=== PATIENT | female | born 1965 | race Caucasian/White ===

== ENCOUNTER 2023-01-10 01:26 | Outpatient (CLI) | payer BC, SELFPAY ==
--- NOTE | 2023-01-10 | DI.MRI_ITS ---
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 CONTRAST MATERIAL: IV Contrast: 17 mL of Dotarem contrast administered. COMPARISON: MR HEAD ADULT from 10/23/2022 FINDINGS: The examination is limited due to patient motion artifact. VENTRICLES AND EXTRA AXIAL SPACES: Normal in size and morphology for the patient's age. HEMORRHAGE: None. CEREBRAL PARENCHYMA: No focus of restricted diffusion to suggest acute infarct. There is again seen a resection cavity in the right frontal lobe. There is surrounding hyperintense signal seen on the T2 and FLAIR images predominantly inferior and posterior. There is no abnormal enhancement seen around the right frontal resection site. MIDLINE SHIFT: None. BRAINSTEM/CEREBELLUM: Normal. CALVARIUM: Normal. ENHANCEMENT: There is a 1.2 x 1.1 x 1.1 cm enhancing lesion which appears to be extra-axial and assoc iated with the tentorium cerebellum on the right. VISUALIZED PARANASAL SINUSES/MASTOIDS: Clear. [place]: Normal flow void. PITUITARY GLAND: Unremarkable. OTHER FINDINGS: IMPRESSION: 1. Stable postsurgical changes in the right frontal lobe without evidence of new enhancement. 2. Stable T2 signal adjacent to the resection cavity without enhancement. 3. 1.2 x 1.1 x 1.1 cm enhancing lesion near the junction of the posterior right temporal lobe and rig ht occipital lobe. On the coronal images the finding appears to be extra-axial and associated with t he tentorium. This may represent a benign lesion such as a meningioma. Low-grade neoplasm cannot be excluded. DATA REPOSITORY:
[2023-01-10] MEDS: Gadoterate meglumine 20 ML VIAL IVP (14:33)
[2023-01-10] MEDS: Normal Saline Flush 10 ML SYR IVP (14:33)
== END 2023-01-10 01:46 ==
LOC: DI 01:27
PROVIDERS: Visit Provider Internal Medicine
DX: C71.9 Malignant neoplasm of brain, unspecified (principal)
CPT/HCPCS: 70553

== ENCOUNTER → 2023-04-05 00:49 | Outpatient (CLI) | payer BC, SELFPAY ==
--- NOTE | 2023-04-05 | DI.MRI_ITS ---
Exam(s) MR BRAIN WO/W EXAM: MR BRAIN WO/W CLINICAL HISTORY: OLIGODENDROGLIOMA, C71.9. TECHNIQUE: Multiplanar multisequence MRI of the brain was performed. CONTRAST MATERIAL: IV Contrast: ML of Dotarem contrast administered. COMPARISON: MR HEAD ADULT from 10/23/2022 MR MR BRAIN WO/W from 01/10/2023 FINDINGS: VENTRICLES AND EXTRA AXIAL SPACES: Normal in size and morphology for the patient's age. HEMORRHAGE: None. CEREBRAL PARENCHYMA: No focus of restricted diffusion to suggest acute infarct. Area encephalomalacia is again noted in the high right frontal lobe. Stable area of surrounding gliosis. No evidence of recurrence mass or meningeal thickening at this site. Stable 12 millimeters circumscribed enhancing lesion above the right tentorium compared with the previous 2 exams.. MIDLINE SHIFT: None. BRAINSTEM/CEREBELLUM: Normal. CALVARIUM: Normal. ENHANCEMENT: No suspicious enhancement identified. VISUALIZED PARANASAL SINUSES/MASTOIDS: Clear. OTHER FINDINGS: None. IMPRESSION: Stable appearance of area of encephalomalacia in the right frontal lobe. Stable small small enhancin g lesion above the right tentorium. No new findings. DATA REPOSITORY:
[2023-04-05] MEDS: Gadoterate meglumine 20 ML VIAL 16 ML IVP (10:16)
[2023-04-05] MEDS: Normal Saline Flush 10 ML SYR IVP (10:16)
== END ==
PROVIDERS: Visit Provider Internal Medicine
DX: C71.9 Malignant neoplasm of brain, unspecified (principal)
CPT/HCPCS: 70553

== ENCOUNTER → 2023-08-14 01:52 | Outpatient (CLI) | payer BC, SELFPAY ==
--- NOTE | 2023-08-14 | DI.MRI_ITS ---
Exam(s) MR CERVICAL SPINE WO/W EXAM: MR CERVICAL SPINE WO/W CLINICAL HISTORY: OLIGODENDROGLIOMA C71.9 OTHER POLYNEUROPATHY G62.89 TECHNIQUE: Multiplanar multisequence MRI of the cervical spine was performed with both pre and post contrast infused sequences. CONTRAST: IV DOTAREM 16 mL COMPARISON: MR HEAD from 10/23/2022 FINDINGS: CERVICOMEDULLARY JUNCTION: Intact with no evidence of cerebellar tonsillar ectopia. No obvious abnor mality of the odontoid process. No evidence of Chiari 1 malformation. CERVICAL SPINAL CORD: There is no abnormal signal in the cervical spinal cord and no evidence of foca l cord atrophy nor focal cord swelling. OSSEOUS:There are no cervical fractures evident. No significant osseous lesions in the cervical vert ebrae. No abnormal intraosseous enhancement. There is, however, reversal of the normal curvature wh ich most probably related to muscle spasm. INDIVIDUAL LEVELS: C2-3: No disc herniation nor central canal stenosis. No foraminal stenosis. Moderate degenerative ch anges in the facet joint. No degenerative changes in the right facet joint. No foraminal stenosis. No abnormal enhancement at this level.. C3-4: No disc herniation nor central canal stenosis.There is significant degenerative change in the l eft facet joint at this level. Mild foraminal stenosis on the left side. On the right side there is less degenerative change in the facet joint and no foraminal stenosis. No abnormal enhancement evid ent at this level. C4-5: This level exhibits chronic disc space narrowing and anterior osseous lipping. Posteriorly the re is broad symmetrical annular bulging with a superimposed central subligamentous disc bulge. This extends posteriorly 1.5 mm and is approximately 5 mm wide. Indents the thecal sac but not the spinal cord. Central canal dimensions are lower normal at this level. No abnormal signal in the cord at t his level.There are degenerative changes in the left facet joint at this level. Moderate foraminal s tenosis. On the right side there is no facet arthropathy nor foraminal stenosis. No abnormal enhanc ement at this level. C5-6: This level also exhibits chronic disc space narrowing and anterior osteophytes. Posteriorly th ere is symmetrical annular bulging. No prominent disc herniation. Central canal dimensions are lowe r normal. Mild degenerative changes in the left facet joint. Mild left-sided foraminal stenosis. M inimal degenerative changes in the right facet joint. No right-sided foraminal stenosis. There is n o abnormal enhancement at this level. C6-7: This level also exhibits chronic disc space narrowing and anterior osseous lipping. Posteriorl y there is no disc herniation or central canal stenosis. Minimal degenerative change in left facet j oints. Mild left-sided foraminal stenosis. On the right side facet joints appear unremarkable and t here is no facet arthropathy nor foraminal stenosis on the right side at this level. There is no abn ormal enhancement at this level. C7-T1: This level exhibits normal disc height and signal. There is very mild anterolisthesis of C7 u prosper T1 related to facet arthropathy which is more prominent on the left side. There is no disc herni ation or central canal stenosis at this level.. There is no foraminal stenosis on the right side at this level and right facet joints appear unremarkable. On the left side at this level there is moder ate facet arthropathy and mild foraminal stenosis.There is no abnormal enhancement at this level. IMPRESSION: 1. Multilevel chronic type degenerative disc disease as described individually above without evidence of a distinct focal disc herniation or central canal stenosis. 2. There is mild multilevel left-sided foraminal stenosis to asymmetric degenerative changes in the l eft facet joints in the cervical spine, when compared to the less degenerative right facet joints. 3. No evidence of abnormal signal in the cord. No evidence of cord swelling nor focal cord atrophy n or syringomyelia. No abnormal enhancement in the cervical spinal cord nor within the epidural space nor within the disc nor within the vertebral bodies. DATA REPOSITORY:
--- NOTE | 2023-08-14 10:15 | DI.MRI_ITS ---
Exam(s) MR LUMBAR SPINE WO/W EXAM: MR LUMBAR SPINE WO/W CLINICAL HISTORY: OLIGODENDROGLIOMA C71.9 OTHER POLYNEUROPATHY G62.89. TECHNIQUE: Multiplanar multisequence MRI of the Lumbar spine was performed. Both pre and post contra st infused sequences were performed. CONTRAST: IV Dotarem 16 mL COMPARISON: No exams were available for comparison FINDINGS: Conus medullaris is at normal level. There is no evidence of conus mass nor subjacent clumping of in trathecal nerve roots to suggest arachnoiditis. Also no evidence of abnormal nodular enhancement of the cauda equina to suggest drop metastases. The distal thecal sac appears unremarkable.There is no evidence of [place] intrasacral cysts nor other significant findings within the sacral canal Bones:There are no fractures nor ominous osseous lesions in the lumbar vertebral bodies and visualize d sacrum. No fractures. No normal intraosseous enhancement no discitis. With respect to the individual levels... T12-L1: Unremarkable L1-2: Normal disc height and signal. No disc herniation nor central canal stenosis.No foraminal steno sis L2-3: Normal disc height. There is mild degenerative anterolisthesis of L2 upon L3 related to facet a rthropathy. There is no disc herniation. Central canal dimensions are lower normal. There is no si gnificant foraminal stenosis. Moderate-Advanced facet joint degenerative changes are evident. L3-4: This level exhibits some disc space narrowing right more than left. There is also mild degener ative anterolisthesis of L3 upon L4 due to facet arthropathy. Central canal dimensions are lower nor mal. There is no significant foraminal stenosis. Advanced degenerative changes in the facet joints. L4-5: This level exhibits relatively uniform moderate disc space narrowing. There is annular bulging and a superimposed small right paracentral disc protrusion, better seen on the sagittal than on the axial images. This is slightly right of center. Slightly indents the thecal sac. Actual central ca nal dimensions are lower normal. There is no foraminal stenosis on the left side. On the right side there is annular bulging in the floor of the exiting right neural foramen but no prominent foraminal stenosis. Facet joints exhibit minimal degenerative change at this level. L5-S1: Normal disc height and signal. There is relatively symmetrical annular bulging without a nilsa nant disc herniation. Central canal dimensions are normal. Exiting left neural foramen unremarkable . There is mild right-sided foraminal stenosis. There is facet arthropathy on the left side without significant arthropathy in the right facet joint. Soft tissues: paraspinal soft tissues appear unremarkable. IMPRESSION: 1. No evidence of drop metastases nor other neoplastic findings in the lumbosacral spinal canal. 2. There is mild multilevel listhesis ease related to significant facet arthropathy. There is, howev er, no prominent central spinal canal stenosis. There is no significant foraminal stenosis with the exception of mild foraminal stenosis on the right side at L5-S1 level. 3. No osseous lesions. DATA REPOSITORY:
--- NOTE | 2023-08-14 10:15 | DI.MRI_ITS ---
Exam(s) MR THORACIC SPINE WO/W EXAM: MR THORACIC SPINE WO/W CLINICAL HISTORY: OLIGODENDROGLIOMA C71.9 OTHER POLYNEUROPATHY G62.89 TECHNIQUE: Multiplanar multisequence MRI of the thoracic spine was performed with both pre and post contrast infused sequences. CONTRAST: IV DOTAREM 16 ML COMPARISON: MR MR LUMBAR SPINE WO/W from 08/14/2023 FINDINGS: OSSEOUS: There are no acute appearing thoracic vertebral fractures. There are no ominous osseous les ions in the thoracic vertebrae. THORACIC SPINAL CORD: There is no abnormal signal in the cervical spinal cord and no evidence of foca l cord atrophy nor focal cord swelling. There is no evidence of syringomyelia nor significant spinal cord dysraphism. There is no abnormal enhancement in the spinal cord and no evidence of extramedull akil/intradural enhancement. There is no evidence of mass at the conus medullaris. The position of t he conus medullaris is at T12-L1 level. SIGNIFICANT INDIVIDUAL LEVEL FINDINGS: T8-T9: There is a central-left paracentral disc herniation at this level which extends posteriorly 3 mm and is 1.2 cm wide. This indents the thecal sac but not the actual spinal cord. The disc herniat ion does not appear to extend into the exiting neural foramen on either side. There is no foraminal stenosis on either side. There is no abnormal enhancement at this level T7-T8: There is a small posterolateral left disc protrusion extending posteriorly 1 mm and 5 mm wide, this slightly indents the left side of the thecal sac but not the spinal cord. There is no signific ant central canal nor foraminal stenosis this level. There is no abnormal enhancement at this level. Conus medullaris: Located at L1 level. No evidence of mass at this level. No abnormal enhancement. PARASPINAL TISSUES: No significant masses nor fluid collections evident. IMPRESSION: 1. Two levels of disc herniations, as described above. No prominent central canal stenosis. No sign ificant foraminal stenosis at these levels nor elsewhere in the thoracic spinal column. 2. Abnormal findings in the thoracic spinal cord. No evidence of abnormal signal in the thoracic spi nal cord. No abnormal enhancement. No syringomyelia. No dysraphism. 3. No abnormal extramedullary/intradural nor extra dural enhancement. DATA REPOSITORY:
[2023-08-21] MEDS: Gadoterate meglumine 20 ML SYRINGE 16 ML IVP (09:40)
[2023-08-21] MEDS: Normal Saline Flush 10 ML SYR IVP (09:41)
== END ==
PROVIDERS: Visit Provider Internal Medicine
DX: M51.25 Other intervertebral disc displacement, thoracolumbar region (principal); M50.13 Cervical disc disorder with radiculopathy, cervicothoracic region
CPT/HCPCS: 72158; 72156; 72157

== ENCOUNTER → 2023-08-21 00:42 | Outpatient (CLI) | payer BC, SELFPAY | PROVIDERS: Visit Provider Internal Medicine | DX: G95.89 Other specified diseases of spinal cord (principal); C71.9 Malignant neoplasm of brain, unspecified; M51.34 Other intervertebral disc degeneration, thoracic region ==

== ENCOUNTER 2025-05-10 00:10 | Outpatient (CLI) | payer BC, SELFPAY ==
--- NOTE | 2025-05-10 | DI.MRI_ITS ---
Exam(s) MR LUMBAR SPINE WO EXAM: MR LUMBAR SPINE WO CLINICAL HISTORY: LEG WEAKNESS BILAT R29.898 PROGRESSIVE LOWER EXT WEAKNESS. TECHNIQUE: Multiplanar multisequence MRI of the Lumbar spine was performed. COMPARISON: MR MR LUMBAR SPINE WO/W from 08/14/2023 FINDINGS: Bones: The last intervertebral disc space is designated the L5/S1 level for the numbering purpose of this examination. The vertebral body heights are well maintained. There is stable alignment of the lumbar spine. The signal characteristics are unremarkable. Cord: It is of normal size and signal intensity. T12-L1: No disc herniations or bulges are present. No central spinal canal or neural foraminal stenosis. L1-2: No disc herniations or bulges are present. No central spinal canal or neural foraminal stenosis. L2-3: No disc herniations or bulges are present. There are degenerative changes of the facets present. There is no significant central spinal canal stenosis. There is mild left neural foraminal stenosis. No significant right neural foraminal stenosis is present. L3-4: No disc herniations or bulges are present. There are degenerative changes of the facets present. There is no significant central spinal canal stenosis.There is mild bilateral neural foraminal stenosis. L4-5: There is a mild diffuse disc bulge. Mild degenerative changes of the facets are present. There is no significant central spinal canal stenosis. There is mild bilateral neural foraminal stenosis. L5-S1: No disc herniations or bulges are present. There is no central spinal canal stenosis. There degenerative changes of the facets, particularly on the left. There is resultant [id number] left neural foraminal stenosis. There is mild right neural foraminal stenosis. Soft tissues: The visualized SI joints and sacrum are well maintained. The paraspinal soft tissues are unremarkable. IMPRESSION: Multilevel degenerative changes in the lumbar spine resulting in multilevel neural foraminal stenosis as described above. DATA REPOSITORY:
== END 2025-05-10 00:30 ==
LOC: DI 00:12
PROVIDERS: Visit Provider Psychiatry & Neurology Neurology
DX: R29.898 Other symptoms and signs involving the musculoskeletal system (principal); M48.07 Spinal stenosis, lumbosacral region
CPT/HCPCS: 72148

== ENCOUNTER → 2025-06-29 00:45 | Outpatient (CLI) | payer BC, SELFPAY ==
--- NOTE | 2025-06-29 | DI.MRI_ITS ---
Exam(s) MR BRAIN WO/W EXAM: MR BRAIN WO/W CLINICAL HISTORY: OLIGODENDROGLIOMA, C71.9, FOLLOW UP TECHNIQUE: Multiplanar multisequence MRI of the brain was performed. Both noninfused and contrast infused sequences were performed. IV Contrast injected was 15 cc Dotarem. COMPARISON: MR MRI BRAIN WWO CONTRAST W PERFUSION from 04/06/2025 MR MRI BRAIN WWO CONTRAST (STANDARD) from 06/04/2025 FINDINGS: CEREBRAL PARENCHYMA: Again noted is a right frontal craniotomy and subjacent extra-axial resection cavity which presently measures 3.6 cm AP by 2.7 cm wide by 2.9 cm craniocaudal, similar to previous outside MRI images of 06/04/2025. The amount of surrounding T2 hyperintensity is unchanged and there is no new significant mass effect upon the right lateral ventricle nor shift of midline structures. There is again noted rim enhancement which appears similar to previous although there does appear to be slight increase in susceptibility artifact along the inferior aspect and the internal fluid is more T1 hyper intense. DWI: No new areas of restricted diffusion the brain to suggest acute ischemic event. There are no additional enhancing findings in the brain. There is no significant signal abnormality in the cerebellar hemispheres nor within the mike, midbrain, and thalami nor within the left side of the brain. PITUITARY GLAND: No mass nor parasellar abnormality. No obvious abnormality in the cavernous sinuses. FLOW VOIDS: The expected flow void are noted. No evidence of obvious aneurysm nor obvious vascular malformation. PARANASAL SINUSES: The visualized paranasal sinuses appear unremarkable. ORBITS: No obvious abnormal findings. IMPRESSION: 1. Right frontal craniotomy and resection with extra-axial resection cavity again noted which appears unchanged in size from 06/04/2025 although does exhibit some increased susceptibility of along the inferior margin of the fluid cavity and increased T1 hyperintensity, indicating some increased blood products therein. However, there is no increasing mass effect nor increase in surrounding white matter signal abnormality when compared to the scan of 06/04/2025. DATA REPOSITORY:
[2025-06-29] MEDS: Gadoterate meglumine 20 ML SYRINGE 15 ML IVP (11:06)
[2025-06-29] MEDS: Normal Saline Flush 10 ML SYR IVP (11:07)
--- NOTE | 2025-06-29 18:34 | DI.VRAD_ITS ---
PROCEDURE INFORMATION: Exam: MR Head Without and With Contrast Exam date and time: 06/29/2025 10:57 AM Age: 60 years old Clinical indication: Other: Oligodendroglioma, c71.9, follow up TECHNIQUE: Imaging protocol: Magnetic resonance imaging of the head without and with contrast. Contrast material: DOTAREM; Contrast volume: 15 ml; Contrast route: INTRAVENOUS (IV); COMPARISON: MRI BRAIN WWO CONTRAST W PERFUSION 04/06/2025 10:18 AM FINDINGS: Brain: No acute infarct. No acute hemorrhage. No new extra-axial fluid collection. Cerebral ventricles: Normal. No ventriculomegaly. Bones: Right frontal craniotomy. Paranasal sinuses: Normal as visualized. No acute sinusitis. Mastoid air cells: Normal as visualized. No mastoid effusion. Orbital cavities: Unremarkable. Soft tissues: Unremarkable. Other findings: Right frontal resection cavity. Thin rim of enhancement along the resection. The fluid collection is slightly larger than on the prior study. There is surrounding T2 hyperintensity, which is similar to the prior study. There is increasing enhancement and susceptibility along the inferior margin of the resection cavity. IMPRESSION: Right frontal resection. Resection cavity slightly larger. There is increased thin rim of enhancement and susceptibility along the inferior margin of the fluid cavity in comparison to the prior study. Dictated and Authenticated by: Michi Brasher MD. Orderin Gabrielle Escoto MD
== END ==
PROVIDERS: PCP Nurse Practitioner Family; Visit Provider Psychiatry & Neurology Neurology
DX: C71.9 Malignant neoplasm of brain, unspecified (principal)
CPT/HCPCS: 70553